=== PATIENT | male | born 2000 | race Caucasian/White ===

== ENCOUNTER 2019-05-10 18:21 | Emergency (ER) | payer OTHER ==
[2019-05-10 23:59] VITALS: BP 104/50
== END 2019-05-10 23:30 | disposition home or self-care (01) ==
LOC: ED 18:21
DX: S20.212A Contusion of left front wall of thorax, initial encounter (principal); M54.2 Cervicalgia; M79.605 Pain in left leg; R51 Headache; V49.49XA Driver injured in collision with other motor vehicles in traffic accident, initial encounter; Y93.89 Activity, other specified; Y92.410 Unspecified street and highway as the place of occurrence of the external cause; Y99.8 Other external cause status
CPT/HCPCS: 70450; 71111; 71260; 72125; 74177; 99284; Q9967